=== PATIENT | female | born 1980 | race Caucasian/White ===

== ENCOUNTER 2022-04-10 18:17 | Inpatient (IN) ==
[2022-04-10 18:52] LABS: Hematocrit 30 % (35-47); Hemoglobin 9.5 g/dL (12.0-16.0); Mean Corpuscular HGB Conc 32 g/dL (31-36); Mean Corpuscular Hemoglobin 27 pg (27-31); Mean Corpuscular Volume 85 fL (80-97); Mean Platelet Volume 8.5 fL (7.4-10.4); Platelet Count 166 10^3/uL (150-450); Red Blood Count 3.53 10^6 /uL (3.70-4.87); Red Cell Distribution Width 18 % (10-15); White Blood Count 8.7 10^3/uL (3.5-10.8)
[2022-04-10] MEDS ORDERED: Methylergonovine 0.2 mg AMPULE 1 ml AMP IM ONE (18:52)
[2022-04-10] MEDS ORDERED: Witch Hazel PAD JAR TOPICAL PRN (18:52)
[2022-04-10] MEDS ORDERED: Dibucaine 1% OINT 28.35 GM TUBE PR PRN (18:52)
[2022-04-10] MEDS ORDERED: Glycerin ADULT 2.4 gm SUPP PR PRN (18:52)
[2022-04-10] MEDS ORDERED: Tetan/Diph/Pertus SYR(Tdap) 0.5 ML SYR(BOOSTRIX) use SYR contains LATEX IM ONE (18:52)
[2022-04-10] MEDS ORDERED: RHO D Immune Globulin (HUMAN) 300 MCG = 1,500 I.U. INJ IM PRN (18:52)
[2022-04-10] MEDS ORDERED: Lactated Ringers 1000 ml BAG 1,000 ML IV SCH (19:00)
[2022-04-11 06:26] LABS: ABS Monocytes 0.7 10^3/ul (0-0.8); ABS Neutrophils 6.3 10^3/ul (1.5-7.7); Eosinophil % 0.1 %; Hematocrit 26 % (35-47); Hemoglobin 8.3 g/dL (12.0-16.0); Lymphocyte % 21.6 %; Mean Corpuscular HGB Conc 32 g/dL (31-36); Mean Corpuscular Hemoglobin 28 pg (27-31); Mean Corpuscular Volume 85 fL (80-97); Mean Platelet Volume 8.4 fL (7.4-10.4); Nucleated Red Blood Cells % 0.2; Platelet Count 139 10^3/uL (150-450); Red Blood Count 3.03 10^6 /uL (3.70-4.87); Red Cell Distribution Width 18 % (10-15); White Blood Count 9.1 10^3/uL (3.5-10.8)
[2022-04-12 07:41] VITALS: BP 132/83
[2022-04-12] MEDS ORDERED: Tetan/Diph/Pertus SYR(Tdap) 0.5 ML SYR(BOOSTRIX) use SYR contains LATEX IM ONE (10:26)
== END 2022-04-12 11:49 | disposition home or self-care (01) | DRG 560 ==
LOC: MCHOBOUT 18:17 → MCHOB 18:30
PROVIDERS: ADMIT Midwife; ATTEND Midwife